=== PATIENT | male | born 1960 | race Caucasian/White ===

== ENCOUNTER 2017-04-08 19:39 | Emergency (ER) | payer OTHER ==
[~2017-04-08] VITALS: Ht 175.3 cm; Wt 90.8 kg
[2017-04-08 20:50] LABS: MCH 31.3 PG (29.0-34.0); MCV 92.3 FL (86-99); MEAN PLAT.VOLUME 9.1 uM^3 (9.0-12.4); PLATELET COUNT 119 K/uL (156-360); RBC DIS.WIDTH-CV 13.7 % (11.8-14.6); RBC DIS.WIDTH-SD 46.3 % (39-53); RED BLOOD COUNT 4.66 M/uL (4.00-5.50); WHITE BLOOD COUNT 7.7 K/uL (4.1-10.2)
[2017-04-08 20:59] LABS: CHLORIDE 117 mEq/L (99-109); POTASSIUM 4.1 mEq/L (3.7-5.4); SODIUM 148 mEq/L (136-147)
[2017-04-08 21:01] LABS: GLUCOSE 106 mg/dL (70-99)
[2017-04-08 21:02] LABS: ANION GAP 10 MEQ/L (2-14)
[2017-04-08 21:04] LABS: GFR ESTIMATE (CALCULATED) > 59 mL/min/
[2017-04-08 21:05] LABS: UREA NITROGEN (BUN) 10 mg/dL (9-23)
[2017-04-08 21:11] LABS: TROP-I INTERPRETATION NEGATIVE; TROPONIN-I < 0.01 ng/mL (0.0-0.30)
[2017-04-09 00:14] VITALS: BP 110/70
== END 2017-04-09 00:15 | disposition home or self-care (01) ==
LOC: EME → EDBD 19:39 → EME 04-09 00:15
PROVIDERS: Emergency Medicine
DX: F10.929 Alcohol use, unspecified with intoxication, unspecified (principal); W19.XXXA Unspecified fall, initial encounter; S00.81XA Abrasion of other part of head, initial encounter; B19.20 Unspecified viral hepatitis C without hepatic coma; K74.60 Unspecified cirrhosis of liver; F17.200 Nicotine dependence, unspecified, uncomplicated
CPT/HCPCS: 70450; 71010; 80048; 84484; 85027; 93005; 99281; 99285

== ENCOUNTER 2017-04-15 02:04 | Observation (INO) | payer OTHER ==
[~2017-04-15] VITALS: Ht 177.8 cm; Wt 97.2 kg
[2017-04-15 03:09] LABS: BASOPHIL COUNT 0.1 K/uL (0-0.1); EOSINOPHIL (%) 1.5 % (0-5); EOSINOPHIL COUNT 0.1 K/uL (0-0.3); HEMATOCRIT 43.8 % (38.0-50.0); IMMATURE GRANULOCYTE (%) 0.2 % (0.0-0.7); INSTRUMENT ABS NEUTROPHIL CT 5.1 K/uL; MCH 31.3 PG (29.0-34.0); MCHC 34.5 G/DL (30.0-36.0); MCV 90.9 FL (86-99); MEAN PLAT.VOLUME 9.2 uM^3 (9.0-12.4); MONOCYTE (%) 9.7 % (3-12); MONOCYTE COUNT 0.8 K/uL (0-0.8); NEUTROPHIL (%) 62.9 % (45-76); NEUTROPHIL COUNT 5.1 K/uL (1.8-6.4); PLATELET COUNT 90 K/uL (156-360); RBC DIS.WIDTH-CV 13.1 % (11.8-14.6); RBC DIS.WIDTH-SD 43.2 % (39-53); RED BLOOD COUNT 4.82 M/uL (4.00-5.50)
[2017-04-15 03:19] LABS: INTER. NORMALIZED RATIO 1.2; PROTHROMBIN TIME 11.9 (9.2-11.2); PTT 28.7 (25-32)
[2017-04-15 03:23] LABS: CHLORIDE 107 mEq/L (99-109); POTASSIUM 3.8 mEq/L (3.7-5.4); SODIUM 143 mEq/L (136-147)
[2017-04-15 03:25] LABS: GLUCOSE 95 mg/dL (70-99)
[2017-04-15 03:26] LABS: ANION GAP 11 MEQ/L (2-14)
[2017-04-15 03:28] LABS: SERUM ETHYL ALCOHOL 349 mg/dL
[2017-04-15 03:29] LABS: GFR ESTIMATE (CALCULATED) > 59 mL/min/
[2017-04-15 03:30] LABS: UREA NITROGEN (BUN) 9 mg/dL (9-23)
[2017-04-15 03:32] LABS: TROP-I INTERPRETATION NEGATIVE; TROPONIN-I < 0.01 ng/mL (0.0-0.30)
[2017-04-15 03:32] LABS: LIPASE 35 U/L (1.0-51.0)
[2017-04-15 07:45] VITALS: BP 133/77
[2017-04-15 11:28] VITALS: BP 112/61
[2017-04-15 11:55] LABS: AMPHETAMINES QUANT VALUE 0 NG/ML; BARBITUATES QUANT VALUE 0 NG/ML; BENZODIAZEPINES QUANT VALUE 0 NG/ML; BENZODIAZEPINES, URINE SCREEN Negative (200 ng/mL); MARIJUANA QUANT VALUE 0 NG/ML; OPIATES QUANTITATIVE VALUE 0 NG/ML; PHENCYCLIDINE QUANT VALUE 0 NG/ML
[2017-04-15 13:12] LABS: TROP-I INTERPRETATION NEGATIVE; TROPONIN-I < 0.01 ng/mL (0.0-0.30)
[2017-04-15] MEDS ORDERED: LO-DOSE ASPIRIN81 M2 PO (13:33)
[2017-04-15] MEDS ORDERED: PRAVACHOL40 MG PO (13:33)
[2017-04-15] MEDS ORDERED: CENTRUM SILVER1 EAC3 PO (14:43)
[2017-04-15 15:57] VITALS: BP 89/54
[2017-04-15 19:38] LABS: TROP-I INTERPRETATION NEGATIVE; TROPONIN-I 0.02 ng/mL (0.0-0.30)
[2017-04-15 19:41] VITALS: BP 133/71
== END 2017-04-15 19:57 | disposition home or self-care (01) ==
LOC: EME → EDBD 02:04 → EME 02:04 → EDOF 06:36 → 5WEST 06:36 → EDOF 06:36 → 5WEST 07:35
PROVIDERS: Emergency Medicine; Hospitalist
DX: R07.9 Chest pain, unspecified (principal); F10.129 Alcohol abuse with intoxication, unspecified; Y90.8 Blood alcohol level of 240 mg/100 ml or more; F14.10 Cocaine abuse, uncomplicated; M25.512 Pain in left shoulder; S01.80XA Unspecified open wound of other part of head, initial encounter; K74.60 Unspecified cirrhosis of liver; Z72.0 Tobacco use; J44.9 Chronic obstructive pulmonary disease, unspecified
CPT/HCPCS: 70450; 71010; 71275; 80048; 80306 90; 83690; 83735; 84484; 85025; 85610; 85730; 93005; 99281; 99285; G0378; G0480; J3411; J3475; J7030

== ENCOUNTER 2017-07-03 00:25 | Emergency (ER) | payer OTHER ==
[~2017-07-03] VITALS: Ht 175.3 cm; Wt 97.5 kg
[2017-07-03 00:23] LABS: MCH 30.6 PG (29.0-34.0); MCHC 33.2 G/DL (30.0-36.0); MCV 92.3 FL (86-99); MEAN PLAT.VOLUME 8.9 uM^3 (9.0-12.4); PLATELET COUNT 123 K/uL (156-360); RBC DIS.WIDTH-CV 14.8 % (11.8-14.6); RBC DIS.WIDTH-SD 50.6 % (39-53); RED BLOOD COUNT 5.09 M/uL (4.00-5.50); WHITE BLOOD COUNT 7.7 K/uL (4.1-10.2)
[~2017-07-03 00:25] MED LIST: CENTRUM SILVER1 EAC3 PO; LO-DOSE ASPIRIN81 M2 PO; PRAVACHOL40 MG PO
[2017-07-03 00:33] LABS: CHLORIDE 108 mEq/L (99-109); POTASSIUM 4.1 mEq/L (3.7-5.4); SODIUM 142 mEq/L (136-147)
[2017-07-03 00:35] LABS: GLUCOSE 88 mg/dL (70-99)
[2017-07-03 00:36] LABS: ANION GAP 13 MEQ/L (2-14)
[2017-07-03 00:39] LABS: GFR ESTIMATE (CALCULATED) > 59 mL/min/
[2017-07-03 00:40] LABS: UREA NITROGEN (BUN) 8 mg/dL (9-23)
[2017-07-03] MEDS ORDERED: ULTRAM50 MG PO (01:19)
[2017-07-03] MEDS ORDERED: BACTRIM,SEPT1 TABLET PO (01:19)
[2017-07-03 01:32] VITALS: BP 112/85
== END 2017-07-03 01:32 | disposition home or self-care (01) ==
LOC: EME 00:25
PROVIDERS: Emergency Medicine
DX: L02.415 Cutaneous abscess of right lower limb (principal); M79.89 Other specified soft tissue disorders; F10.129 Alcohol abuse with intoxication, unspecified; F17.200 Nicotine dependence, unspecified, uncomplicated
CPT/HCPCS: 80048; 83605; 85027; 87040; 93971; 99281; 99284